=== PATIENT | female | born 1980 | race African-American/Black ===

== ENCOUNTER 2017-12-11 07:48 | Inpatient (IN) ==
[2017-12-11] MEDS ORDERED: ONDANSETRON 4 MG/2 ML VIAL IV STA (08:24)
[2017-12-11] MEDS ORDERED: SODIUM CHLORIDE 0.9% 2,000 ML IV STA (08:24)
[2017-12-11] MEDS ORDERED: ONDANSETRON 4 MG/2 ML VIAL ONE (08:25)
[2017-12-11 09:27] LABS: Basophils % 0.2 % (0.0-0.8); Eosinophils % 0.1 % (0.00-10.9); Hematocrit 30.7 VOL% (35.7-47.0); Hemoglobin 10.9 GM/DL (12.0-16.0); Immature Granulocytes % 0.4 %; Immature Granulocytes Absolute 0.04 #; Lymphocytes # 1.2 10*3/uL (1.4-4.0); Lymphocytes % 13.6 % (21.3-54.2); Mean Corpuscular HGB Conc 35.5 GM/DL (32-36); Mean Corpuscular Hemoglobin 31 PG (27-34); Mean Platelet Volume 10.6 FL (9.6-12.0); Monocytes # 0.7 10*3/uL (0.11-0.8); Monocytes % 7.8 % (1.7-12.7); Neutrophils # 6.9 10*3/uL (1.4-7.4); Neutrophils % 77.9 % (38.7-73.9); Platelet Count 235 T/CUMM (130-400); Red Blood Count 3.53 MC/CUMM (3.8-5.5); Red Cell Distribution Width 11.9 % (9.3-17.3); White Blood Count 8.9 T/CUMM (4-12)
[2017-12-11 09:50] LABS: Albumin 3.4 G/DL (3.4-5.0); Bilirubin,Total 0.4 MG/DL (0.2-1.0); Calcium 9.2 MG/DL (8.5-10.1); Osmolality,Calculated 271.8 MOS/KG (273-304); Total Protein 8.1 G/DL (6.4-8.3)
[2017-12-11] MEDS ORDERED: POTASSIUM CHLORIDE 20 MEQ TABLET PO STA (10:09)
[2017-12-11] MEDS ORDERED: ACETAMINOPHEN 325 MG TABLET PO PRN (11:39)
[2017-12-11] MEDS ORDERED: BISACODYL 10 MG SUPP RECTAL PRN (11:39)
[2017-12-11] MEDS ORDERED: MAGNESIUM HYDROXIDE SUSP 30 ML UDCUP PO PRN (11:39)
[2017-12-11] MEDS: LACTATED RINGERS 1,000 ML IV SCH ×2 (12:06→21:21)
[2017-12-11] MEDS: ONDANSETRON 4 MG/2 ML VIAL IV SCH ×2 (14:55→21:11)
[2017-12-11] MEDS: ALUMINUM/MAGNES/SIMETH MAX STR 30 ML UDCUP PO PRN (17:38)
[2017-12-12] MEDS: ONDANSETRON 4 MG/2 ML VIAL IV SCH ×4 (02:30→20:39)
[2017-12-12] MEDS: DOCUSATE SODIUM 100 MG CAPSULE PO SCH (02:45)
[2017-12-12 04:12] LABS: Calcium 8.7 MG/DL (8.5-10.1); Osmolality,Calculated 277.3 MOS/KG (273-304); Potassium 2.8 MMOL/L (3.5-5.1)
[2017-12-12] MEDS: LACTATED RINGERS 1,000 ML IV SCH (07:38)
[2017-12-12] MEDS: SODIUM CHLOR 0.45% KCL 20 MEQ 20 MEQ/1,000 ML BAG IV SCH (15:09)
[2017-12-12] MEDS: ALUMINUM/MAGNES/SIMETH MAX STR 30 ML UDCUP PO PRN (20:48)
[2017-12-13] MEDS: ONDANSETRON 4 MG/2 ML VIAL IV SCH ×2 (03:04→09:20)
[2017-12-13] MEDS: SODIUM CHLOR 0.45% KCL 20 MEQ 20 MEQ/1,000 ML BAG IV SCH (03:04)
[2017-12-13] MEDS: DOCUSATE SODIUM 100 MG CAPSULE PO SCH ×3 (04:13→09:20)
[2017-12-13 04:15] LABS: Albumin 2.4 G/DL (3.4-5.0); Bilirubin,Total 0.5 MG/DL (0.2-1.0); Calcium 8.1 MG/DL (8.5-10.1); Osmolality,Calculated 273.5 MOS/KG (273-304); Potassium 3.3 MMOL/L (3.5-5.1); Total Protein 5.9 G/DL (6.4-8.3)
[2017-12-13 11:27] VITALS: BP 110/58
[2017-12-13] MEDS ORDERED: ONDANSETRON 4 MG TABLET PO SCH (14:00)
== END 2017-12-13 16:10 | disposition home or self-care (01) | DRG 566 ==
LOC: EDBD → EDUNIT# → N.ED 07:48 → N.EDINP 10:11 → N.OB 11:54
PROVIDERS: ADMIT Obstetrics & Gynecology; ATTEND Obstetrics & Gynecology